=== PATIENT | female | born 1995 | race Caucasian/White ===

== ENCOUNTER 2018-04-29 16:40 | Emergency (ER) | payer OTHER ==
--- NOTE | 2018-04-29 17:25 | ER ---
Nurse's Notes [facility] Name: Sindi Sanchez Age: 22 yrs Sex: Female : 1995 Arrival Date: 04/29/2018 Time: 16:43 Bed 14 Private MD: None, None Diagnosis: Dental Pain Presentation: 04/29 16:48 Presenting complaint: Patient states: "I have this tooth that is causing a lot of pain aj1 and now my gum is starting to hurt" Reports she has been having pain in this tooth for the past month and a half. Patient has not seen a dentist regarding this complaint. Transition of care: patient was not received from another setting of care. Onset of symptoms was February 2018. Risk Assessment: Do you want to hurt yourself or someone else? Patient reports no desire to harm self or others. Initial Sepsis Screen: Does the patient meet any 2 criteria? No. Patient's initial sepsis screen is negative. Does the patient have a suspected source of infection? No. Patient's initial sepsis screen is negative. Care prior to arrival: None. 16:48 Method Of Arrival: Ambulatory aj1 16:48 Acuity: LAURA 4 aj1 Triage Assessment: 16:49 General: Appears in no apparent distress. comfortable, Behavior is calm, cooperative, aj1 appropriate for age. Pain: Complains of pain in mouth Pain currently is 6 out of 10 on a pain scale. EENT: Reports pain in mouth. Neuro: Level of Consciousness is awake, alert, obeys commands. Cardiovascular: Patient's skin is warm and dry. Respiratory: Airway is patent Respiratory effort is even, unlabored, Respiratory pattern is regular, symmetrical. 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 - Social history:: Smoking status: Patient uses tobacco products, smokes one pack cigarettes per day. - Ebola Screening: : Patient denies travel to an Ebola-affected area in the 21 days before illness onset. Screenin:15 Abuse screen: Denies threats or abuse. Denies injuries from another. Nutritional hb screening: No deficits noted. Tuberculosis screening: No symptoms or risk factors identified. Fall Risk None identified. Assessment: 16:55 General: Appears comfortable, Behavior is calm, cooperative. Pain: Complains of pain in rb1 mouth Pain currently is 6 out of 10 on a pain scale. Neuro: Level of Consciousness is awake, alert, obeys commands, Oriented to person, place, time, situation. Cardiovascular: Capillary refill < 3 seconds is brisk in bilateral fingers. Respiratory: Airway is patent Respiratory effort is even, unlabored, Respiratory pattern is regular, symmetrical. GI: No signs and/or symptoms were reported involving the gastrointestinal system. : No signs and/or symptoms were reported regarding the genitourinary system. Derm: Skin is dry, Skin is normal, Skin temperature is warm. Vital Signs: 16:49 BP 139 / 74; Pulse 86; Resp 18; Temp 97.2; Pulse Ox 98% on R/A; Weight 63.5 kg (R); aj1 Height 5 ft. 3 in. (160.02 cm); 16:49 Body Mass Index 24.80 (63.50 kg, 160.02 cm) aj1 ED Course: 16:43 Patient arrived in ED. sb2 16:43 None, None is Private Physician. sb2 16:49 Triage completed. aj1 16:49 Arm band placed on Patient placed in an exam room. aj1 16:55 Pulse ox on. NIBP on. rb1 16:56 Clemente Kay PA is PHCP. [facility] 16:56 Marcelino Berg MD is Attending Physician. [facility] 17:20 Patient has correct armband on for positive identification. Bed in low position. Call hb light in reach. Side rails up X 1. 17:40 No provider procedures requiring assistance completed. Patient did not have IV access hb during this emergency room visit. Administered Medications: No medications were administered Outcome: 17:25 Discharge ordered by . [facility] 17:39 Discharged to home ambulatory. hb 17:39 Condition: stable 17:39 Discharge instructions given to patient, Instructed on discharge instructions, follow up and referral plans. medication usage, Demonstrated understanding of instructions, follow-up care, medications, Prescriptions given X 2. 17:41 Patient left the ED. hb Signatures: Jess John RN RN aj1 MicClemente donaldson PA PA jmm Barber, Rebecca, RN RN rb1 Luciana Lozano RN RN hb Barbara Beebe sb2
--- NOTE | 2018-04-29 17:25 | EDPHYS ---
Physician Documentation [facility] Name: Sindi Sanchez Age: 22 yrs Sex: Female : 1995 Arrival Date: 04/29/2018 Time: 16:43 Bed 14 Private MD: None, None ED Physician Marcelino Berg HPI: 04/29 17:23 This 22 yrs old Female presents to ER via Ambulatory with complaints of jmm Toothache. 17:23 The patient presents with broken tooth/teeth. The problem is located in the upper left jmm third molar. Onset: The symptoms/episode began/occurred acutely, 1 day(s) ago. Duration: The symptoms are continuous. Modifying factors: The symptoms are alleviated by over the counter medications, oragel, the symptoms are aggravated by chewing. Associated signs and symptoms: Pertinent negatives: fever. This is a 22 year old female with no chronic medical conditions that presents to the ED with left upper molar dental pain ongoing for approx 1.5 months worsening last night after she chipped her tooth. Patient has taken oragel with transient relief. . 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 - Social history:: Smoking status: Patient uses tobacco products, smokes one pack cigarettes per day. - Ebola Screening: : Patient denies travel to an Ebola-affected area in the 21 days before illness onset. ROS: 17:23 Constitutional: Negative for fever, chills, and weight loss. jmm 17:23 Neck: Negative for injury, pain, and swelling, Cardiovascular: Negative for chest pain, palpitations, and edema, Respiratory: Negative for shortness of breath, cough, wheezing, and pleuritic chest pain. 17:23 ENT: Positive for dental pain. 17:23 All other systems are negative. Exam: 17:23 Constitutional: This is a well developed, well nourished patient who is awake, alert, jmm and in no acute distress. Head/Face: atraumatic. 17:23 Neck: Trachea midline, Supple Chest/axilla: Normal chest wall appearance and motion. Cardiovascular: Regular rate and rhythm. No edema appreciated Respiratory: Normal respirations, no respiratory distress appreciated Abdomen/GI: Non distended, soft Back: Normal ROM Skin: General appearance color normal MS/ Extremity: Moves all extremities, no obvious deformities appreciated, no edema noted to the lower extremities Neuro: Awake and alert, normal gait Psych: Behavior is normal, Mood is normal, Patient is cooperative and pleasant 17:23 ENT: Dental exam: dental caries, that is moderate, specifically in the upper left third molar (#16). Vital Signs: 16:49 BP 139 / 74; Pulse 86; Resp 18; Temp 97.2; Pulse Ox 98% on R/A; Weight 63.5 kg (R); aj1 Height 5 ft. 3 in. (160.02 cm); 16:49 Body Mass Index 24.80 (63.50 kg, 160.02 cm) aj1 MDM: 17:23 Patient medically screened. [facility] 17:24 Data reviewed: vital signs, nurses notes. Counseling: I had a detailed discussion with otto the patient and/or guardian regarding: the historical points, exam findings, and any diagnostic results supporting the discharge/admit diagnosis, the need for outpatient follow up, to return to the emergency department if symptoms worsen or persist or if there are any questions or concerns that arise at home. Administered Medications: No medications were administered Disposition: 04/29/18 17:25 Discharged to Home. Impression: Dental Pain. - Condition is Stable. - Discharge Instructions: Dental Pain. - Prescriptions for penicillin V potassium 500 mg Oral tablet - take 1 tablet by ORAL route every 6 hours for 10 days; 40 tablet. Ultracet 37.5- 325 mg Oral Tablet - take 1 tablet by ORAL route every 6 hours - for up to 5 days; do not exceed 8 tablets per day.; 6 tablet. - Medication Reconciliation Form, Thank You Letter, Antibiotic Education, Prescription Opioid Use, Work release form form. - Follow up: Private Physician; When: 2 - 3 days; Reason: Recheck today's complaints, Continuance of care, Re-evaluation by your physician. Addendum: 05/10/2018 07:31 Co-signature as Attending Physician, Marcelino Berg MD I agree with the assessment and k dr plan of care. Signatures: Jess John RN RN aj1 Marcelino Breg MD MD kdr Mickail, Joel, PA PA janetm Luciana Lozano RN RN hb Corrections: (The following items were deleted from the chart) 04/29 17:41 17:25 04/29/2018 17:25 Discharged to Home. Impression: Dental Pain. Condition is hb Stable. Forms are Medication Reconciliation Form, Thank You Letter, Antibiotic Education, Prescription Opioid Use. Follow up: Private Physician; When: 2 - 3 days; Reason: Recheck today's complaints, Continuance of care, Re-evaluation by your physician. otto
[2018-04-29 18:34] VITALS: BP 139/74; TEMP 97.2; O2SAT 98
== END 2018-04-29 17:41 | disposition home or self-care (01) ==
LOC: ER 16:40
DX: K08.89 Other specified disorders of teeth and supporting structures (principal); F17.210 Nicotine dependence, cigarettes, uncomplicated
CPT/HCPCS: 99283

== ENCOUNTER 2018-05-14 11:17 | Emergency (ER) | payer OTHER, SELFPAY ==
--- NOTE | 2018-05-14 14:13 | ER ---
Nurse's Notes [facility] Name: Sindi Sanchez Age: 22 yrs Sex: Female : 1995 Arrival Date: 05/14/2018 Time: 11:23 Bed 11 Private MD: None, None Diagnosis: Cellulitis of face Presentation: 05/14 11:44 Presenting complaint: Patient states: i was bitten by ants on the R side of the face 2 hj days ago and its swollen and getting worse; applies Neosporin cream; denies vision problems on the R eye; been taking penicillin for tooth infection;. Transition of care: patient was not received from another setting of care. Onset of symptoms was May 14, 2018. Risk Assessment: Do you want to hurt yourself or someone else? Patient reports no desire to harm self or others. Initial Sepsis Screen: Does the patient meet any 2 criteria? No. Patient's initial sepsis screen is negative. Does the patient have a suspected source of infection? Yes: Skin breakdown/wound. Care prior to arrival: None. 11:44 Method Of Arrival: Ambulatory 11:44 Acuity: LAURA 4 Triage Assessment: 11:46 Bite description: bite sustained to face by a fire ant, animal information: vaccination(s) is not applicable. General: Appears in no apparent distress. uncomfortable, Behavior is calm, cooperative, appropriate for age. Pain: Complains of pain in face Pain currently is 3 out of 10 on a pain scale. 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 - Social history:: Smoking status: Patient uses tobacco products, Patient/guardian denies using alcohol. - Ebola Screening: : Patient negative for fever greater than or equal to 101.5 degrees Fahrenheit, and additional compatible Ebola Virus Disease symptoms Patient denies exposure to infectious person Patient denies travel to an Ebola-affected area in the 21 days before illness onset. Screenin:46 Abuse screen: Denies threats or abuse. Denies injuries from another. Nutritional hj screening: No deficits noted. Tuberculosis screening: No symptoms or risk factors identified. Fall Risk None identified. Assessment: 11:47 Derm: Skin is intact, Skin is pink, warm \T\ dry. Vital Signs: 11:47 BP 107 / 82; Pulse 115; Resp 18; Temp 98.6(O); Pulse Ox 99% on R/A; Weight 61.23 kg; hj Height 5 ft. 3 in. (160.02 cm); Pain 3/10; 11:47 Body Mass Index 23.91 (61.23 kg, 160.02 cm) ED Course: 11:23 Patient arrived in ED. mr 11:23 None, None is Private Physician. mr 11:45 Triage completed. hj 11:47 Arm band placed on right wrist. hj 11:50 Patient has correct armband on for positive identification. Placed in gown. Bed in low hj position. Call light in reach. Side rails up X 1. 12:52 Kriss Nagel, RN is Primary Nurse. iw 12:57 Marcelino Berg MD is Attending Physician. kdr 15:04 No provider procedures requiring assistance completed. Patient did not have IV access iw during this emergency room visit. Administered Medications: 15:05 Not Given (Duplicate Order): Clindamycin 600 mg IM once iw 15:05 Drug: Clindamycin 300 mg Route: PO; iw Outcome: 14:12 Discharge ordered by . kdr 15:04 Discharged to home ambulatory, with family. iw 15:04 Condition: good 15:04 Discharge instructions given to patient, family, Instructed on discharge instructions, follow up and referral plans. medication usage, Demonstrated understanding of instructions, follow-up care, medications, Prescriptions given X 1. 15:05 Patient left the ED. iw Signatures: Marcelino Berg MD MD [facility] Trang Parker mr Kriss Nagel, RN RN Adolfo Navarro RN RN Corrections: (The following items were deleted from the chart) 11:50 11:44 Presenting complaint: Patient states: i was bitten by ants on the R side of the hj face 2 days ago and its swollen and getting worse; applies Neosporin cream; denies vision problems on the R eye; 05/15 07:25 01/ 15:04 Discharge instructions given to patient, family, Instructed on discharge iw instructions, follow up and referral plans. medication usage, Demonstrated understanding of instructions, follow-up care, medications, Prescriptions given X 2, iw
--- NOTE | 2018-05-14 14:13 | EDPHYS ---
Physician Documentation [facility] Name: Sindi Sanchez Age: 22 yrs Sex: Female : 1995 Arrival Date: 05/14/2018 Time: 11:23 Bed 11 Private MD: None, None ED Physician Marcelino Berg HPI: 05/14 18:19 This 22 yrs old Female presents to ER via Ambulatory with complaints of kdr Insect Bite, Facial Swelling. 18:19 The patient presents with cellulitis of the right lower eyelid, the patient presents kdr with a swollen area of the right lower eyelid. Description: The affected area is small, irregular, erythematous, raised, swollen. Onset: The symptoms/episode began/occurred gradually, 3 - 4 days. Possible cause(s): unknown. Associated signs and symptoms: Pertinent positives: erythema, swelling. Modifying factors: the symptoms are alleviated by nothing, the symptoms are aggravated by squeezing the lesion and expressing the contents, touching. Severity of symptoms: At their worst the symptoms were very mild, in the emergency department the symptoms are unchanged. The patient has not experienced similar symptoms in the past. The patient has not recently seen a physician. QA TECH: 11:47 LMP 04/16/2018 Historical: - Allergies: 11:46 No Known Allergies; hj - Home Meds: 11:46 None [Active]; hj - PMHx: 11:46 None; hj - PSHx: 11:46 ; hj - Immunization history:: Adult Immunizations not up to date. - Social history:: Smoking status: Patient uses tobacco products, Patient/guardian denies using alcohol. - Ebola Screening: : Patient negative for fever greater than or equal to 101.5 degrees Fahrenheit, and additional compatible Ebola Virus Disease symptoms Patient denies exposure to infectious person Patient denies travel to an Ebola-affected area in the 21 days before illness onset. ROS: 18:19 Constitutional: Negative for fever, chills, and weight loss, Eyes: Negative for injury, kdr pain, redness, and discharge. 18:19 Skin: Positive for cellulitis, of the medial canthus of right eye and right lower eyelid. Exam: 18:19 Constitutional: This is a well developed, well nourished patient who is awake, alert, kdr and in no acute distress. Head/Face: Normocephalic, atraumatic. Cellulitis under right eye Eyes: Pupils equal round and reactive to light, extra-ocular motions intact. Lids and lashes normal. Conjunctiva and sclera are non-icteric and not injected. Cornea within normal limits. Periorbital areas with no swelling, redness, or edema. Vital Signs: 11:47 BP 107 / 82; Pulse 115; Resp 18; Temp 98.6(O); Pulse Ox 99% on R/A; Weight 61.23 kg; hj Height 5 ft. 3 in. (160.02 cm); Pain 3/10; 11:47 Body Mass Index 23.91 (61.23 kg, 160.02 cm) hj MDM: 14:12 Patient medically screened. kdr 18:19 Data reviewed: vital signs, nurses notes. Counseling: I had a detailed discussion with kdr the patient and/or guardian regarding: the historical points, exam findings, and any diagnostic results supporting the discharge/admit diagnosis, the need for outpatient follow up. Administered Medications: 15:05 Not Given (Duplicate Order): Clindamycin 600 mg IM once iw 15:05 Drug: Clindamycin 300 mg Route: PO; iw Disposition: 05/14/18 14:12 Discharged to Home. Impression: Cellulitis of face. - Condition is Stable. - Discharge Instructions: Cellulitis, Adult, [id number]. - Prescriptions for Clindamycin HCl 300 mg Oral Capsule - take 1 capsule by ORAL route every 6 hours for 7 days; 28 capsule. - Medication Reconciliation Form, Thank You Letter, Antibiotic Education, Work release form form. - Follow up: Private Physician; When: 2 - 3 days; Reason: If symptoms return, Further diagnostic work-up, Recheck today's complaints, Continuance of care, Re-evaluation by your physician. - Problem is new. - Symptoms are unchanged. Signatures: Marcelino Berg MD MD [facility] Kriss Nagel RN RN Adolfo Navarro RN RN Corrections: (The following items were deleted from the chart) 15:05 14:12 05/14/2018 14:12 Discharged to Home. Impression: Cellulitis of face. Condition is iw Stable. Forms are Medication Reconciliation Form, Thank You Letter, Antibiotic Education, Prescription Opioid Use. Follow up: Private Physician; When: 2 - 3 days; Reason: If symptoms return, Further diagnostic work-up, Recheck today's complaints, Continuance of care, Re-evaluation by your physician. Problem is new. Symptoms are unchanged. kdr
[2018-05-14] MEDS ORDERED: CLINDAMYCIN HCL 150 MG CAP ONE (15:09)
[2018-05-14 15:19] VITALS: BP 107/82; TEMP 98.6; O2SAT 99
== END 2018-05-14 15:05 | disposition home or self-care (01) ==
LOC: ER 11:17
DX: H00.032 Abscess of right lower eyelid (principal); Z72.0 Tobacco use
CPT/HCPCS: 99283

== ENCOUNTER 2019-11-03 06:53 | Emergency (ER) | payer SELFPAY ==
--- NOTE | 2019-11-03 07:51 | ER ---
Nurse's Notes [facility] Name: Sindi Sanchez Age: 24 yrs Sex: Female : 1995 Arrival Date: 11/03/2019 Time: 06:54 Bed 16 Private MD: Diagnosis: Preseptal Cellulitis Presentation: 11/02 07:11 Chief complaint: Patient states: "Yesterday I was laying down and I got bit by ss something. I don't know what it was. There was a little whelp at first, but I woke up this morning and it's much worse." Redness and swelling to R eye. Coronavirus screen: Proceed with normal triage. Patient denies a cough. Patient denies shortness of breath or difficulty breathing. Patient denies measured and/or subjective temperature greater than 100.4F prior to today's visit. Patient denies travel on a cruise ship or to a country the [facility] currently lists as an affected area. Patient denies contact with known and/or suspected case of COVID-19. Ebola Screen: Patient denies exposure to infectious person. Patient denies travel to an Ebola-affected area in the 21 days before illness onset. Initial Sepsis Screen: Does the patient meet any 2 criteria? No. Patient's initial sepsis screen is negative. Does the patient have a suspected source of infection? No. Patient's initial sepsis screen is negative. Risk Assessment: Do you want to hurt yourself or someone else? Patient reports no desire to harm self or others. Onset of symptoms was November 02, 2019. 07:11 Method Of Arrival: Ambulatory 07:11 Acuity: LAURA 4 ss Historical: - Allergies: 07:13 No Known Allergies; ss - Home Meds: 07:13 None [Active]; ss - PMHx: 07:13 None; ss - PSHx: 07:13 ; ss - Immunization history:: Adult Immunizations not up to date. - Social history:: Smoking status: Patient reports the use of cigarette tobacco products, smokes one pack cigarettes per day. Screenin:51 Abuse screen: Denies threats or abuse. Denies injuries from another. Nutritional ph screening: No deficits noted. Tuberculosis screening: No symptoms or risk factors identified. Fall Risk None identified. Assessment: 07:49 General: Appears in no apparent distress. comfortable, well groomed, Behavior is calm, ph cooperative, appropriate for age, Denies fever. Pain: Complains of pain in right eye. Neuro: Level of Consciousness is awake, alert, obeys commands, Oriented to person, place, time, situation. Cardiovascular: Capillary refill < 3 seconds in bilateral fingers Patient's skin is warm and dry. Respiratory: Airway is patent Respiratory effort is even, unlabored, Respiratory pattern is regular, symmetrical, Denies shortness of breath. GI: No signs and/or symptoms were reported involving the gastrointestinal system. EENT: swelling noted below R eye. Derm: Skin is intact, is healthy with good turgor, Skin is pink, warm \\T\\ dry. Musculoskeletal: Circulation, motion, and sensation intact. Range of motion: intact in all extremities. Injury Description: Bite is from insect. Vital Signs: 07:11 BP 140 / 95; Pulse 115; Resp 15; Temp 98.2(TE); Pulse Ox 100% on R/A; Weight 63.5 kg; ss Height 5 ft. 3 in. (160.02 cm); Pain 2/10; 07:11 Body Mass Index 24.80 (63.50 kg, 160.02 cm) ED Course: 06:54 Patient arrived in ED. cl3 07:13 Triage completed. ss 07:13 Arm band placed on left wrist. ss 07:20 Ian Woods PA is PHCP. jr8 07:20 Josue Brunson MD is Attending Physician. jr8 07:21 Sakina Stanton, RN is Primary Nurse. ph 07:49 Jorge Luis Maria MD is Referral Physician. jr8 07:52 Patient has correct armband on for positive identification. Bed in low position. Call ph light in reach. Side rails up X 1. Pulse ox on. NIBP on. 08:03 No provider procedures requiring assistance completed. Patient did not have IV access ph during this emergency room visit. Administered Medications: No medications were administered Outcome: 07:50 Discharge ordered by . jr8 08:03 Discharged to home ambulatory. ph 08:03 Condition: good 08:03 Discharge instructions given to patient, Instructed on discharge instructions, follow up and referral plans. medication usage, Demonstrated understanding of instructions, follow-up care, medications, Prescriptions given X 2. 08:04 Patient left the ED. ph Signatures: Myriam Sparks, SAÚL RN ss Ian Woods PA PA jr8 Sakina Stanton RN RN ph Corinna Maldonado cl3
--- NOTE | 2019-11-03 07:51 | EDPHYS ---
Physician Documentation [facility] Name: Sindi Sanchez Age: 24 yrs Sex: Female : 1995 Arrival Date: 11/03/2019 Time: 06:54 Bed 16 Private MD: ED Physician oJsue Brunson HPI: 11/02 09:06 This 24 yrs old Female presents to ER via Ambulatory with complaints of jr8 Insect Bite, Eye Swelling. 09:06 The patient is experiencing pain, swelling. Onset: The symptoms/episode began/occurred jr8 acutely, today. Duration: the symptoms are continuous. Aggravated by nothing. Alleviated by nothing. Associated signs and symptoms: Pertinent positives: None. Patient does not utilize any form of vision correction. Severity of symptoms: At their worst the symptoms were moderate in the emergency department the symptoms are unchanged. The patient has not experienced similar symptoms in the past. The patient has not recently seen a physician. Historical: - Allergies: 07:13 No Known Allergies; ss - Home Meds: 07:13 None [Active]; ss - PMHx: 07:13 None; ss - PSHx: 07:13 ; ss - Immunization history:: Adult Immunizations not up to date. - Social history:: Smoking status: Patient reports the use of cigarette tobacco products, smokes one pack cigarettes per day. ROS: 09:06 ENT: Negative for injury, pain, and discharge, Neck: Negative for injury, pain, and jr8 swelling, Cardiovascular: Negative for chest pain, palpitations, and edema, Respiratory: Negative for shortness of breath, cough, wheezing, and pleuritic chest pain, Abdomen/GI: Negative for abdominal pain, nausea, vomiting, diarrhea, and constipation, Back: Negative for injury and pain, MS/Extremity: Negative for injury and deformity, Skin: Negative for injury, rash, and discoloration, Neuro: Negative for headache, weakness, numbness, tingling, and seizure. 09:06 Eyes: Positive for pain, swelling, of the right eye. Exam: 09:06 Visual Acuity: Visual acuity is within normal limits. jr8 09:06 Head/Face: Normocephalic, atraumatic. ENT: Nares patent. No nasal discharge, no septal abnormalities noted. Tympanic membranes are normal and external auditory canals are clear. Oropharynx with no redness, swelling, or masses, exudates, or evidence of obstruction, uvula midline. Mucous membranes moist. Neck: Trachea midline, no thyromegaly or masses palpated, and no cervical lymphadenopathy. Supple, full range of motion without nuchal rigidity, or vertebral point tenderness. No Meningismus. Cardiovascular: Regular rate and rhythm with a normal S1 and S2. No gallops, murmurs, or rubs. Normal PMI, no JVD. No pulse deficits. Respiratory: Lungs have equal breath sounds bilaterally, clear to auscultation and percussion. No rales, rhonchi or wheezes noted. No increased work of breathing, no retractions or nasal flaring. Abdomen/GI: Soft, non-tender, with normal bowel sounds. No distension or tympany. No guarding or rebound. No evidence of tenderness throughout. Skin: Warm, dry with normal turgor. Normal color with no rashes, no lesions, and no evidence of cellulitis. MS/ Extremity: Pulses equal, no cyanosis. Neurovascular intact. Full, normal range of motion. Neuro: Awake and alert, GCS 15, oriented to person, place, time, and situation. Cranial nerves II-XII grossly intact. Motor strength 5/5 in all extremities. Sensory grossly intact. Cerebellar exam normal. Normal gait. 09:06 Eyes: Periorbital structures: cellulitis, that is mild, on the right lower eyelid, swelling, that is moderate, on the right lower eyelid, Pupils: equal, round, and reactive to light and accomodation, Extraocular movements: intact throughout, Conjunctiva: normal, Corneas: are normal, Sclera: no appreciated abnormality, Anterior chamber: normal, Lids and lashes: appear normal, Examination of the other eye reveals no obvious gross abnormality. Vital Signs: 07:11 BP 140 / 95; Pulse 115; Resp 15; Temp 98.2(TE); Pulse Ox 100% on R/A; Weight 63.5 kg; ss Height 5 ft. 3 in. (160.02 cm); Pain 2/10; 07:11 Body Mass Index 24.80 (63.50 kg, 160.02 cm) ss MDM: 07:21 Patient medically screened. jr8 07:47 Differential diagnosis: allergic reaction, preseptal cellulitis, septal cellulitis, jr8 conjunctivitis, stye, facial cellulitis . Data reviewed: vital signs, nurses notes, and as a result, I will discharge patient. Data interpreted: Pulse oximetry: on room air is 100 %. Interpretation: normal. Counseling: I had a detailed discussion with the patient and/or guardian regarding: the historical points, exam findings, and any diagnostic results supporting the discharge/admit diagnosis, the need for outpatient follow up, an opthalmologist, a family practitioner, to return to the emergency department if symptoms worsen or persist or if there are any questions or concerns that arise at home. ED course: Patient with no globe pain or decreased ROM. No pupillary defect. Most likely preseptal cellulitis. Will start on Abx and have her f/u with Ophthalmology. Know to return if worse. S/S given to watch for indicating worsening of condition . Administered Medications: No medications were administered Disposition: 19:41 Co-signature as Attending Physician, Josue Brunson MD. mh7 Disposition: 11/03/19 07:50 Discharged to Home. Impression: Preseptal Cellulitis . - Condition is Stable. - Discharge Instructions: Orbital Cellulitis. - Prescriptions for Ibuprofen 800 mg Oral Tablet - take 1 tablet by ORAL route every 12 hours As needed take with food; 20 tablet. Bactrim DS 800- 160 mg Oral Tablet - take 1 tablet by ORAL route every 12 hours for 10 days; 20 tablet. - Medication Reconciliation Form, Thank You Letter, Antibiotic Education, Prescription Opioid Use form. - Follow up: Jorge Luis Maria MD; When: 5 - 6 days; Reason: Recheck today's complaints, Continuance of care, Re-evaluation by your physician. - Problem is new. - Symptoms have improved. Signatures: Myriam Sparks, RN RN Ian Woods PA PA jr8 Sakina Stanton RN RN Josue Brunson MD MD mh7 Corrections: (The following items were deleted from the chart) 08:04 07:50 11/03/2019 07:50 Discharged to Home. Impression: Preseptal Cellulitis . Condition ph is Stable. Forms are Medication Reconciliation Form, Thank You Letter, Antibiotic Education, Prescription Opioid Use. Follow up: Jorge Luis Maria; When: 5 - 6 days; Reason: Recheck today's complaints, Continuance of care, Re-evaluation by your physician. Problem is new. Symptoms have improved. jr8
[2019-11-03 08:27] VITALS: BP 140/95; TEMP 98.2; O2SAT 100
== END 2019-11-03 08:04 | disposition home or self-care (01) ==
LOC: ER 06:53
DX: L03.213 Periorbital cellulitis (principal); F17.210 Nicotine dependence, cigarettes, uncomplicated; W57.XXXA Bitten or stung by nonvenomous insect and other nonvenomous arthropods, initial encounter; Y93.9 Activity, unspecified; Y92.9 Unspecified place or not applicable
CPT/HCPCS: 99283

== ENCOUNTER 2020-02-20 18:00 | Emergency (ER) | payer SELFPAY ==
--- NOTE | 2020-02-20 19:41 | ER ---
Nurse's Notes [facility] Name: Sindi Sanchez Age: 24 yrs Sex: Female : 1995 Arrival Date: 02/20/2020 Time: 18:02 Bed 16 Private MD: Diagnosis: Dental Pain Presentation: 02/19 18:18 Chief complaint: Patient states: Toothache x 3 days. Been taking ibuprofen, aspirin and ca1 other pain meds, no relief. Pain has radiated to L ear, L jaw. Coronavirus screen: Client denies travel out of the [place] in the last 14 days. At this time, the client does not indicate any symptoms associated with coronavirus-19. Ebola Screen: Patient negative for fever greater than or equal to 101.5 degrees Fahrenheit, and additional compatible Ebola Virus Disease symptoms Patient denies exposure to infectious person. Patient denies travel to an Ebola-affected area in the 21 days before illness onset. No symptoms or risks identified at this time. Initial Sepsis Screen: Does the patient meet any 2 criteria? No. Patient's initial sepsis screen is negative. Does the patient have a suspected source of infection? No. Patient's initial sepsis screen is negative. Risk Assessment: Do you want to hurt yourself or someone else? Patient reports no desire to harm self or others. Onset of symptoms was February 20, 2020. 18:18 Method Of Arrival: Ambulatory ca1 18:18 Acuity: LAURA 5 ca1 Triage Assessment: 19:53 EENT: Reports. 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 - Social history:: Smoking status: Patient reports the use of cigarette tobacco products, smokes one-half pack cigarettes per day. Screenin:25 Abuse screen: Denies threats or abuse. Denies injuries from another. Nutritional ca1 screening: No deficits noted. Tuberculosis screening: No symptoms or risk factors identified. Fall Risk None identified. Assessment: 19:25 General: Appears in no apparent distress. comfortable, Behavior is calm, cooperative, ca1 appropriate for age. Pain: Complains of pain in upper left third molar Pain currently is 10 out of 10 on a pain scale. Neuro: Level of Consciousness is awake, alert, obeys commands, Oriented to person, place, time, situation. EENT: Dental caries noted in upper left third molar (#16). Derm: Skin is intact, is healthy with good turgor, Skin is pink, warm \T\ dry. Musculoskeletal: Circulation, motion, and sensation intact. Capillary refill < 3 seconds. Vital Signs: 18:18 BP 121 / 84; Pulse 116; Resp 18 S; Temp 97.2(TE); Pulse Ox 100% on R/A; Weight 72.57 kg ca1 (R); Height 5 ft. 3 in. (160.02 cm) (R); 19:33 BP 114 / 79; Pulse 106; Resp 18 S; Pulse Ox 100% on R/A; ca1 18:18 Body Mass Index 28.34 (72.57 kg, 160.02 cm) ca1 ED Course: 18:02 Patient arrived in ED. as 18:20 Triage completed. ca1 18:21 Arm band placed on right wrist. ca1 19:21 Darleen Frazier, SAÚL is Primary Nurse. ca1 19:21 Josue Brunson MD is Attending Physician. 7 19:25 Patient has correct armband on for positive identification. ca1 19:25 No provider procedures requiring assistance completed. Patient did not have IV access ca1 during this emergency room visit. 19:32 Call light in reach. Side rails up X 1. ca1 19:32 Pulse ox on. NIBP on. ca1 19:39 Michael Lozano DDS is Referral Physician. [facility] Administered Medications: 19:45 Drug: Tylenol 1000 mg Route: PO; fc 19:50 Follow up: Response: Medication administered at discharge. ca1 Outcome: 19:41 Discharge ordered by . 7 19:53 Discharged to home ambulatory. fc 19:53 Condition: good 19:53 Discharge instructions given to patient, Instructed on discharge instructions, follow up and referral plans. no drinking with medication, no driving heavy equipment, medication usage, Demonstrated understanding of instructions, follow-up care, medications, Prescriptions given X 2. 19:54 Patient left the ED. Signatures: Carlene Hernandez RN RN Martine Linder as Darleen Frazier RN RN ca1 Josue Brunson, MD DUMONT mh7
--- NOTE | 2020-02-20 19:41 | EDPHYS ---
Physician Documentation [facility] Name: Sindi Sanchez Age: 24 yrs Sex: Female : 1995 Arrival Date: 02/20/2020 Time: 18:02 Bed 16 Private MD: ED Physician Josue Brunson HPI: 02/19 19:32 This 24 yrs old Female presents to ER via Ambulatory with complaints of mh7 Toothache. 19:32 The patient presents with pain. The problem is located in the left upper posterior mh7 tooth. Onset: The symptoms/episode began/occurred 6 month(s) ago, and became worse 3 day(s) ago. Duration: The symptoms are intermittent, with no pattern. Modifying factors: The symptoms are alleviated by nothing, the symptoms are aggravated by chewing, cold fluids. Associated signs and symptoms: Pertinent positives: pain, Pertinent negatives: anorexia, chills, dysphagia, fever, inability to eat, nausea, redness in area, swelling, vomiting. Severity of symptoms: At their worst the symptoms were moderate, yesterday, in the emergency department the symptoms have improved, moderately. The patient has experienced similar episodes in the past, several times. 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 - Social history:: Smoking status: Patient reports the use of cigarette tobacco products, smokes one-half pack cigarettes per day. ROS: 19:35 Constitutional: Negative for fever, chills, and weight loss, Eyes: Negative for injury, mh7 pain, redness, and discharge, Neck: Negative for injury, pain, and swelling, Cardiovascular: Negative for chest pain, palpitations, and edema, Respiratory: Negative for shortness of breath, cough, wheezing, and pleuritic chest pain, Abdomen/GI: Negative for abdominal pain, nausea, vomiting, diarrhea, and constipation, Back: Negative for injury and pain, : Negative for injury, bleeding, discharge, and swelling, MS/Extremity: Negative for injury and deformity, Skin: Negative for injury, rash, and discoloration, Neuro: Negative for headache, weakness, numbness, tingling, and seizure, Psych: Negative for depression, anxiety, suicide ideation, homicidal ideation, and hallucinations, Allergy/Immunology: Negative for hives, rash, and allergies, Endocrine: Negative for neck swelling, polydipsia, polyuria, polyphagia, and marked weight changes, Hematologic/Lymphatic: Negative for swollen nodes, abnormal bleeding, and unusual bruising. Exam: 19:35 Constitutional: This is a well developed, well nourished patient who is awake, alert, mh7 and in no acute distress. Head/Face: Normocephalic, atraumatic. Eyes: Pupils equal round and reactive to light, extra-ocular motions intact. Lids and lashes normal. Conjunctiva and sclera are non-icteric and not injected. Cornea within normal limits. Periorbital areas with no swelling, redness, or edema. 19:35 Constitutional: The patient appears 19:35 ENT: External ear(s): are unremarkable, Nose: is normal, Mouth: is normal, Lips: normal, Oral mucosa: normal, Gums: normal with healthy appearance, Tongue: is normal, abscess, is not appreciated, drooling, is not appreciated, Posterior pharynx: is normal, Dental exam: dental caries, that is mild, specifically in the upper left third molar (#16), gum swelling, not appreciated, malocclusion, is not appreciated, missing teeth, not appreciated. 19:37 Neck: Trachea midline, no thyromegaly or masses palpated, and no cervical mh7 lymphadenopathy. Supple, full range of motion without nuchal rigidity, or vertebral point tenderness. No Meningismus. Chest/axilla: Normal chest wall appearance and motion. Nontender with no deformity. No lesions are appreciated. Cardiovascular: Regular rate and rhythm with a normal S1 and S2. No gallops, murmurs, or rubs. Normal PMI, no JVD. No pulse deficits. Respiratory: Lungs have equal breath sounds bilaterally, clear to auscultation and percussion. No rales, rhonchi or wheezes noted. No increased work of breathing, no retractions or nasal flaring. Abdomen/GI: Soft, non-tender, with normal bowel sounds. No distension or tympany. No guarding or rebound. No evidence of tenderness throughout. Back: No spinal tenderness. No costovertebral tenderness. Full range of motion. Skin: Warm, dry with normal turgor. Normal color with no rashes, no lesions, and no evidence of cellulitis. MS/ Extremity: Pulses equal, no cyanosis. Neurovascular intact. Full, normal range of motion. Neuro: Awake and alert, GCS 15, oriented to person, place, time, and situation. Cranial nerves II-XII grossly intact. Motor strength 5/5 in all extremities. Sensory grossly intact. Cerebellar exam normal. Normal gait. Psych: Awake, alert, with orientation to person, place and time. Behavior, mood, and affect are within normal limits. 19:37 ENT: Dental exam: fractured teeth are noted, not appreciated, pain, that is moderate, specifically in the upper left third molar (#16), Voice: is normal, Breath odor: is normal. Vital Signs: 18:18 BP 121 / 84; Pulse 116; Resp 18 S; Temp 97.2(TE); Pulse Ox 100% on R/A; Weight 72.57 kg ca1 (R); Height 5 ft. 3 in. (160.02 cm) (R); 19:33 BP 114 / 79; Pulse 106; Resp 18 S; Pulse Ox 100% on R/A; ca1 18:18 Body Mass Index 28.34 (72.57 kg, 160.02 cm) ca1 MDM: 19:32 Patient medically screened. 7 19:39 Differential diagnosis: dental caries, gingivitis, dental abscess, pericoronitis, 7 aphthous ulcers, acute necrotizing ulcerative gingivitis, gingivostomatitis. Data reviewed: vital signs, nurses notes, old medical records. Data interpreted: Pulse oximetry: on room air is 100 %. Interpretation: normal. Counseling: I had a detailed discussion with the patient and/or guardian regarding: the historical points, exam findings, and any diagnostic results supporting the discharge/admit diagnosis, the need for outpatient follow up, a dentist, to return to the emergency department if symptoms worsen or persist or if there are any questions or concerns that arise at home. Administered Medications: 19:45 Drug: Tylenol 1000 mg Route: PO; fc 19:50 Follow up: Response: Medication administered at discharge. ca1 Disposition: 02/20/20 19:41 Discharged to Home. Impression: Dental Pain. - Condition is Stable. - Discharge Instructions: Dental Pain, [id number]. - Prescriptions for penicillin V potassium 500 mg Oral tablet - take 1 tablet by ORAL route every 6 hours for 7 days; 28 tablet. Tramadol 50 mg Oral Tablet - take 1 tablet by ORAL route every 8 hours As needed as needed; 15 tablet. - Medication Reconciliation Form, Thank You Letter, Antibiotic Education, Prescription Opioid Use form. - Follow up: Michael Lozano DDS; When: 1 - 2 days; Reason: Worsening of condition, Recheck today's complaints. - Problem is an acute exacerbation. - Symptoms have improved. Signatures: Carlene Hernandez RN RN fc Acob, SAÚL Morejon RN ca1 Josue Brunson MD MD mh7 Corrections: (The following items were deleted from the chart) 19:54 19:41 02/20/2020 19:41 Discharged to Home. Impression: Dental Pain. Condition is fc Stable. Forms are Medication Reconciliation Form, Thank You Letter, Antibiotic Education, Prescription Opioid Use. Follow up: Michael Lozano; When: 1 - 2 days; Reason: Worsening of condition, Recheck today's complaints. Problem is an acute exacerbation. Symptoms have improved. mh7
[2020-02-20] MEDS ORDERED: ACETAMINOPHEN 500 MG TAB ONE (19:55)
[2020-02-20 20:31] VITALS: TEMP 97.2; O2SAT 100
[2020-02-20 20:32] VITALS: BP 114/79
== END 2020-02-20 19:54 | disposition home or self-care (01) ==
LOC: ER 18:00
DX: K08.89 Other specified disorders of teeth and supporting structures (principal); F17.210 Nicotine dependence, cigarettes, uncomplicated
CPT/HCPCS: 99283

== ENCOUNTER 2020-11-16 03:42 | Emergency (ER) | payer SELFPAY ==
[2020-11-16] MEDS ORDERED: predniSONE 20 MG TAB ONE (05:13)
[2020-11-16] MEDS ORDERED: AZITHROMYCIN 250 MG TAB ONE (05:13)
--- NOTE | 2020-11-16 05:28 | ER ---
Nurse's Notes [facility] Name: Sindi Sanchez Age: 25 yrs Sex: Female : 1995 Arrival Date: 11/16/2020 Time: 03:46 Bed 20 Private MD: Diagnosis: Acute upper respiratory infection, unspecified;Acute pharyngitis, unspecified Presentation: 11/16 04:07 Chief complaint:. Chief complaint: Patient states: Reports she has been having nasal ea congestion, sore throat and has been unable to taste for the past week. Coronavirus screen: Client presents with at least one sign or symptom that may indicate coronavirus-19. Ebola Screen: No symptoms or risks identified at this time. Initial Sepsis Screen: Does the patient meet any 2 criteria? No. Patient's initial sepsis screen is negative. Does the patient have a suspected source of infection? No. Patient's initial sepsis screen is negative. Risk Assessment: Do you want to hurt yourself or someone else? Patient reports no desire to harm self or others. Onset of symptoms was November 16, 2020. 04:07 Method Of Arrival: Ambulatory ea 04:07 Acuity: LAURA 3 ea 04:07 Acuity: LAURA 4 ea Historical: - Allergies: 04:11 No Known Allergies; ea - Home Meds: 04:11 None [Active]; ea - PMHx: 04:11 None; ea - Immunization history:: Adult Immunizations not immunized. - Social history:: Smoking status: Patient reports the use of cigarette tobacco products, smokes one pack cigarettes per day. - Family history:: not pertinent. Screenin:07 Abuse screen: Denies threats or abuse. Nutritional screening: No deficits noted. ea Tuberculosis screening: No symptoms or risk factors identified. Fall Risk None identified. Assessment: 04:10 General: Appears in no apparent distress. Behavior is calm, cooperative, appropriate ea for age. Pain: Complains of pain in face. Neuro: Level of Consciousness is awake, alert, obeys commands, Oriented to person, place, time. Cardiovascular: Patient's skin is warm and dry. Respiratory: Airway is patent Respiratory effort is even, unlabored, Respiratory pattern is regular, symmetrical. Derm: Skin is pink, warm \T\ dry. 05:17 Reassessment: Patient appears in no apparent distress at this time. Patient and/or ad5 family updated on plan of care and expected duration. Pain level reassessed. Patient is alert, oriented x 3, equal unlabored respirations, skin warm/dry/pink. 05:34 Reassessment: Patient and/or family updated on plan of care and expected duration. Pain ea level reassessed. Patient is alert, oriented x 3, equal unlabored respirations, skin warm/dry/pink. Discharge instruction given to patient verbalized the understanding of instruction. Vital Signs: 04:36 BP 129 / 101; Pulse 98; Resp 18; Temp 97.6; Pulse Ox 97% ; Weight 86.18 kg; Height 5 ea ft. 5 in. (165.10 cm); 05:17 BP 127 / 84; Pulse 106; Resp 18 S; Pulse Ox 97% on R/A; ad5 05:36 BP 122 / 70; Pulse 80; Resp 18; Pulse Ox 99% ; ea 04:36 Body Mass Index 31.62 (86.18 kg, 165.10 cm) ea [place] Coma Score: 04:15 Eye Response: spontaneous(4). Verbal Response: oriented(5). Motor Response: obeys wilfredo commands(6). Total: 15. ED Course: 03:46 Patient arrived in ED. es 03:56 Gary Zhao MD is Attending Physician. wilfredo 04:03 Seven Edmonds is Primary Nurse. ad5 04:07 Patient has correct armband on for positive identification. Bed in low position. Call ea light in reach. 04:10 Triage completed. ea 04:12 Arm band placed on right wrist. Patient placed in an exam room, on a stretcher, on ea pulse oximetry. 05:36 No provider procedures requiring assistance completed. Patient did not have IV access ea during this emergency room visit. Administered Medications: 04:54 Drug: predniSONE 40 mg Route: PO; ad5 05:36 Follow up: Response: No adverse reaction ea 04:54 Drug: Zithromax (azithromycin) 500 mg Route: PO; ad5 05:36 Follow up: Response: No adverse reaction ea Outcome: 05:27 Discharge ordered by . wilfredo 05:36 Discharged to home ambulatory. ea 05:36 Condition: stable 05:36 Discharge instructions given to patient, Instructed on discharge instructions, follow up and referral plans. medication usage, Demonstrated understanding of instructions, follow-up care, medications, Prescriptions given X 3. 05:37 Patient left the ED. ea Signatures: Gary Zhao MD MD cha Salyer, Edna es Antunez, Elena, RN RN Seven Jordan
--- NOTE | 2020-11-16 05:28 | EDPHYS ---
Physician Documentation [facility] Name: Sindi Sanchez Age: 25 yrs Sex: Female : 1995 Arrival Date: 11/16/2020 Time: 03:46 Bed 20 Private MD: GENESIS Physician Gary Zhao HPI: 11/16 04:10 This 25 yrs old Female presents to ER via Unassigned with complaints of wilfredo Headache, Nasal Congestion, Sore Throat. 04:10 The patient complains of pain to the top of head, forehead, left frontal area, left wilfredo side of the back of head, left occipital area, left base of the skull, right frontal area, right side of the back of head, right occipital area and right base of the skull. The patient describes the headache as constant. Onset: The symptoms/episode began/occurred 2 day(s) ago. Associated signs and symptoms: The patient has no apparent associated signs or symptoms. Severity of symptoms: At its worst the pain was mild, moderate, in the emergency department the pain is unchanged. Headache History: Denies prior headaches. The symptoms are alleviated by remaining still, the symptoms are aggravated by movement, noise. The patient has not experienced similar symptoms in the past. Historical: - Allergies: 04:11 No Known Allergies; ea - Home Meds: 04:11 None [Active]; ea - PMHx: 04:11 None; ea - Immunization history:: Adult Immunizations not immunized. - Social history:: Smoking status: Patient reports the use of cigarette tobacco products, smokes one pack cigarettes per day. - Family history:: not pertinent. ROS: 04:10 Constitutional: Negative for fever, chills, and weight loss, Eyes: Negative for injury, wilfredo pain, redness, and discharge, Neck: Negative for injury, pain, and swelling, Cardiovascular: Negative for chest pain, palpitations, and edema, Respiratory: Negative for shortness of breath, cough, wheezing, and pleuritic chest pain, Abdomen/GI: Negative for abdominal pain, nausea, vomiting, diarrhea, and constipation, Back: Negative for injury and pain, : Negative for injury, bleeding, discharge, and swelling, MS/Extremity: Negative for injury and deformity, Skin: Negative for injury, rash, and discoloration, Neuro: Negative for headache, weakness, numbness, tingling, and seizure. 04:10 ENT: Positive for difficulty swallowing, nasal discharge. Exam: 04:10 Constitutional: This is a well developed, well nourished patient who is awake, alert, wilfredo and in no acute distress. Head/Face: Normocephalic, atraumatic. Eyes: Pupils equal round and reactive to light, extra-ocular motions intact. Lids and lashes normal. Conjunctiva and sclera are non-icteric and not injected. Cornea within normal limits. Periorbital areas with no swelling, redness, or edema. Neck: Trachea midline, no thyromegaly or masses palpated, and no cervical lymphadenopathy. Supple, full range of motion without nuchal rigidity, or vertebral point tenderness. No Meningismus. Chest/axilla: Normal chest wall appearance and motion. Nontender with no deformity. No lesions are appreciated. Cardiovascular: Regular rate and rhythm with a normal S1 and S2. No gallops, murmurs, or rubs. Normal PMI, no JVD. No pulse deficits. Respiratory: Lungs have equal breath sounds bilaterally, clear to auscultation and percussion. No rales, rhonchi or wheezes noted. No increased work of breathing, no retractions or nasal flaring. Abdomen/GI: Soft, non-tender, with normal bowel sounds. No distension or tympany. No guarding or rebound. No evidence of tenderness throughout. Back: No spinal tenderness. No costovertebral tenderness. Full range of motion. Skin: Warm, dry with normal turgor. Normal color with no rashes, no lesions, and no evidence of cellulitis. MS/ Extremity: Pulses equal, no cyanosis. Neurovascular intact. Full, normal range of motion. Neuro: Awake and alert, GCS 15, oriented to person, place, time, and situation. Cranial nerves II-XII grossly intact. Motor strength 5/5 in all extremities. Sensory grossly intact. Cerebellar exam normal. Normal gait. 04:10 ENT: Posterior pharynx: Tonsils: with erythema, Uvula: normal, midline, non-edematous, no erythema, swelling, is not appreciated, erythema, that is mild, exudate, is not appreciated. 04:10 Musculoskeletal/extremity: DVT Exam: No signs of deep vein thrombosis. no pain, no swelling, no tenderness, negative Homans' sign noted on exam, no appreciated bluish discoloration, no erythema, no increased warmth. Vital Signs: 04:36 BP 129 / 101; Pulse 98; Resp 18; Temp 97.6; Pulse Ox 97% ; Weight 86.18 kg; Height 5 ea ft. 5 in. (165.10 cm); 05:17 BP 127 / 84; Pulse 106; Resp 18 S; Pulse Ox 97% on R/A; ad5 05:36 BP 122 / 70; Pulse 80; Resp 18; Pulse Ox 99% ; ea 04:36 Body Mass Index 31.62 (86.18 kg, 165.10 cm) ea Kirwin Coma Score: 04:15 Eye Response: spontaneous(4). Verbal Response: oriented(5). Motor Response: obeys wilfredo commands(6). Total: 15. MDM: 03:56 Patient medically screened. wilfredo 04:15 Differential diagnosis: sinusitis. Data reviewed: vital signs, nurses notes, lab test wilfredo result(s). 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 Counseling: I had a detailed discussion with the patient and/or guardian regarding: the historical points, exam findings, and any diagnostic results supporting the discharge/admit diagnosis, lab results, radiology results, the need for outpatient follow up, for definitive care, a family practitioner. 11/16 04:01 Order name: Strep 11/16 04:01 Order name: Group A Streptococcus Rapid Sc [facility] 11/16 05:21 Order name: SARS-COV-2 RT PCR; Complete Time: 05:27 [facility] 11/16 05:32 Order name: Throat Culture EDMO Administered Medications: 04:54 Drug: predniSONE 40 mg Route: PO; ad5 05:36 Follow up: Response: No adverse reaction ea 04:54 Drug: Zithromax (azithromycin) 500 mg Route: PO; ad5 05:36 Follow up: Response: No adverse reaction ea Disposition Summary: 11/16/20 05:27 Discharge Ordered Location: Home wilfredo Problem: new wilfredo Symptoms: have improved wilfredo Condition: Stable wilfredo Diagnosis - Acute upper respiratory infection, unspecified wilfredo - Acute pharyngitis, unspecified wilfredo Followup: wilfredo - With: Private Physician - When: 2 - 3 days - Reason: Recheck today's complaints, Continuance of care, Re-evaluation by your physician Discharge Instructions: - Discharge Summary Sheet wilfredo - Pharyngitis wilfredo - Sore Throat wilfredo - Strep Throat, Adult wilfredo - Upper Respiratory Infection, Adult wilfredo - Cool Mist Vaporizer wilfredo - Upper Respiratory Infection, Adult, [id number] wilfredo - Pharyngitis, [id number] wilfredo - Cough, Adult, [id number] wilfredo - Cough, Adult [facility] Forms: - Medication Reconciliation Form [facility] - Thank You Letter wilfredo - Antibiotic Education [facility] - Prescription Opioid Use [facility] Prescriptions: - [place]-D 12 Hour 60-120 mg Oral Tablet Sustained Release 12 hr - take 1 tablet by ORAL route every 12 hours As needed; 20 tablet; Refills: 0, wilfredo Product Selection Permitted - Zithromax Z-Mariusz 250 mg Oral Tablet - take 1 tablet by ORAL route as directed for 5 days Day 1 - take two (2) tablets wilfredo one time. Day 2, 3, 4 , 5 take one (1) tablet once daily.; 6 tablet; Refills: 0, Product Selection Permitted - Medrol (Mariusz) 4 mg Oral Tablets, Dose Pack - take 1 tablet by ORAL route as directed - follow package instructions; 1 wilfredo packet; Refills: 0, Product Selection Permitted Signatures: Dispatcher [employer] EDGary Aguilar MD MD cha Antunez, Elena RN RN [place] Corrections: (The following items were deleted from the chart) 04:27 04:25 CORONAVIRUS ordered. EDMO EDMS
[2020-11-16 05:44] VITALS: TEMP 97.6
[2020-11-16 05:49] VITALS: BP 122/70; O2SAT 99
== END 2020-11-16 05:37 | disposition home or self-care (01) ==
LOC: ER 03:42
DX: J06.9 Acute upper respiratory infection, unspecified (principal); F17.210 Nicotine dependence, cigarettes, uncomplicated; Z20.822 Contact with and (suspected) exposure to COVID-19
CPT/HCPCS: 87070; 87081; 99283; J7512; U0003